=== PATIENT | female | born 1990 | race Caucasian/White ===

== ENCOUNTER 2018-07-15 14:38 | Emergency (ER) | payer OTHER ==
[~2018-07-15] VITALS: Ht 154.9 cm; Wt 62.6 kg
--- NOTE | 2018-07-15 14:47 | NUR ---
PT AMBULATES TO BED 5
[2018-07-15 14:50] VITALS: BP 136/79
--- NOTE | 2018-07-15 15:00 | NUR ---
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
[2018-07-15 15:55] VITALS: BP 115/70
--- NOTE | 2018-07-15 15:55 | NUR ---
AAO PT D/C INSTRUCTIONS GIVEN BY DR JENKINS; INSTRUCTED TO FOLLOWUP WITH PRIMARY MD; AMBULATE WITH STEADY GAIT; VSS, ALL QUESTIONS ANSWERED BY DR JENKINS.
[2018-07-16 08:11] LABS: HEPATITIS B SURFACE ANTIGEN Negative (Negative)
== END 2018-07-15 15:55 | disposition home or self-care (01) ==
LOC: MED 14:38
DX: S61.230A Puncture wound without foreign body of right index finger without damage to nail, initial encounter (principal); G43.909 Migraine, unspecified, not intractable, without status migrainosus; Y99.8 Other external cause status; W46.0XXA Contact with hypodermic needle, initial encounter; Y93.89 Activity, other specified; Y92.89 Other specified places as the place of occurrence of the external cause
CPT/HCPCS: 36415; 86702; 86803; 87340; 90471; 90715; 99284

== ENCOUNTER 2018-08-26 08:05 | Emergency (ER) | payer OTHER ==
[~2018-08-26] VITALS: Ht 154.9 cm; Wt 64.0 kg
[2018-08-26 08:13] VITALS: BP 125/70
--- NOTE | 2018-08-26 08:21 | NUR ---
PT AMBULATES TO BED 4
--- NOTE | 2018-08-26 08:36 | NUR ---
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
--- NOTE | 2018-08-26 08:54 | NUR ---
Patient being evaluated by physician at bedside.
--- NOTE | 2018-08-26 09:34 | NUR ---
Denny heath in ED - 08/26/18 at 0944 by [email or web address] PT ON STRETCHER, MOTHER AT BEDSIDE, NAD NOTED.
[2018-08-26 09:43] VITALS: BP 123/75
--- NOTE | 2018-08-26 09:44 | NUR ---
Patient discharged with v/s stable. Written and verbal after care instructions given and explained. Patient verbalized understanding. Ambulatory with steady gait. All questions addressed prior to discharge. Advised to follow up with PMD.
[2018-08-27 09:17] LABS: HEPATITIS B SURFACE ANTIGEN Negative (Negative)
== END 2018-08-26 09:44 | disposition home or self-care (01) ==
LOC: MED 08:05
DX: Z77.21 Contact with and (suspected) exposure to potentially hazardous body fluids (principal); G43.909 Migraine, unspecified, not intractable, without status migrainosus
CPT/HCPCS: 36415; 86592; 86702; 86803; 87340; 99284

== ENCOUNTER 2019-01-17 10:43 | Emergency (ER) | payer OTHER ==
[~2019-01-17] VITALS: Ht 154.9 cm; Wt 61.2 kg
[2019-01-17 10:56] VITALS: BP 115/77
--- NOTE | 2019-01-17 11:10 | NUR ---
PT BIB SELF FOR UTI SYMPTOMS X1 MONTH. PT REPORTS BEING TREATED WITH 3 DIFFERENT ABX FROM PCP, AND UTI IS GETTING WORSE. PT DENIES UTI SYMPTOMS AT THIS TIME BUT STATES THAT SHE HAD SUPRAPUBIC BURNING 2 DAYS AGO. INTERMITENT SHARP LUQ ABD PAIN AT 5/10. PT ALSO COMPLAINS OF CONSTIPATION AND HEMORROIDS. PT REPORTS BRIGHT RED BLOOD WHEN WHIPING. PT DENIES N/V/D, OR FEVER. VSS. ER MD TO SEE PT MEDHX:NONE RX:
--- NOTE | 2019-01-17 11:11 | NUR ---
Patient ambulated to bed 2. RN evaluating patient at bedside.
--- NOTE | 2019-01-17 11:50 | NUR ---
Dr. Valle evaluating patient at bedside.
[2019-01-17 12:09] VITALS: BP 124/72
--- NOTE | 2019-01-17 12:09 | NUR ---
Patient discharged with v/s stable. Written and verbal after care instructions given and explained. Patient alert, oriented and verbalized understanding of instructions. Ambulatory with steady gait. All questions addressed prior to discharge. ID band removed. Patient advised to follow up with PMD. Rx of ANUSOL AND COLACE given. Patient educated on indication of medication including possible reaction and side effects. Opportunity to ask questions provided and answered.
[2019-01-19 08:27] LABS: CHLAMYDIA TRACHOMATIS AMP DNA Negative (Negative)
== END 2019-01-17 12:09 | disposition home or self-care (01) ==
LOC: MED 10:43
DX: K64.4 Residual hemorrhoidal skin tags (principal); N39.0 Urinary tract infection, site not specified; G43.909 Migraine, unspecified, not intractable, without status migrainosus
CPT/HCPCS: 36415; 81002; 81025; 87491; 99282

== ENCOUNTER 2019-02-08 18:07 | Emergency (ER) | payer OTHER ==
[~2019-02-08] VITALS: Ht 152.4 cm; Wt 67.6 kg
[2019-02-08 18:13] VITALS: BP 134/76
--- NOTE | 2019-02-08 18:32 | NUR ---
PT AMB TO ER BED 9
--- NOTE | 2019-02-08 18:32 | NUR ---
PATIENT PRESENTS TO ED WITH C/O NAUSEA AND HEADACHE. PAIN 9/10 PT SKIN IS PINK/WARM/DRY; AAOX4 WITH EVEN AND STEADY GAIT; LUNGS CLEAR BL; HR EVEN AND REGULAR; PATIENT STATES PAIN OF 9/10 AT THIS TIME; PATIENT POSITIONED FOR COMFORT; HOB ELEVATED; BEDRAILS UP X2; BED DOWN. PENDING ER MD EVALUATION
--- NOTE | 2019-02-08 18:36 | NUR ---
ER MD DR FLOWER AT BEDSIDE
[2019-02-08] MEDS ORDERED: MORPHINE SULFATE 4 MG/ML SYR IM ONE (18:40)
[2019-02-08] MEDS ORDERED: METOCLOPRAMIDE 10 MG TAB PO ONE (18:40)
[2019-02-08] MEDS ORDERED: KETOROLAC 60 MG/2 ML VIAL IM ONE (18:40)
[2019-02-08 19:20] VITALS: BP 134/76
--- NOTE | 2019-02-08 19:20 | NUR ---
Patient discharged with v/s stable. Written and verbal after care instructions given and explained. Patient alert, oriented and verbalized understanding of instructions. Ambulatory with steady gait. All questions addressed prior to discharge. ID band removed. Patient advised to follow up with PMD. Rx of Fioricet given. Patient educated on indication of medication including possible reaction and side effects. Opportunity to ask questions provided and answered.
== END 2019-02-08 19:20 | disposition home or self-care (01) ==
LOC: MED 18:07
DX: G43.909 Migraine, unspecified, not intractable, without status migrainosus (principal)
CPT/HCPCS: 81002; 81025; 96372; 99283; J1885; J2270; J8597

== ENCOUNTER 2019-10-29 07:41 | Emergency (ER) | payer OTHER ==
[~2019-10-29] VITALS: Ht 154.9 cm; Wt 63.5 kg
--- NOTE | 2019-10-29 07:48 | NUR ---
PATIENT AMBULATED STEDY GAIT TO BED 9.
[2019-10-29 07:54] VITALS: BP 118/81
--- NOTE | 2019-10-29 07:59 | NUR ---
28 Y/O F C/C DIARRHEA SINCE TUESDAY. PER PT BELIEVES IT COULD BE STREET FOOD WHICH SHE HAD TUESDAY. LAST BM THIS MORNING 0600 HOURS; BOWEL SOUNDS NORMOACTIVE. PT NKA. NO HX. SX LIPO. RX VITAMINS. NO N/V. SIDE RAIL X1.
[2019-10-29 09:05] LABS: ANION GAP 8.3 (8-16); CARBON DIOXIDE 27.1 mmol/L (21-32); CREATININE 0.6 mg/dL (0.6-1.3); POTASSIUM 4.4 mmol/L (3.5-5.1)
[2019-10-29 09:11] LABS: ALBUMIN 3.6 g/dL (3.4-5.0); BASOPHILS % (AUTO) 0.3 % (0.0-2.0); EOSINOPHILS # (AUTO) 0.1 K/uL (0-0.4); EOSINOPHILS % (AUTO) 1.2 % (0.0-4.0); HEMOGLOBIN 13.3 g/dL (12.0-16.0); LYMPHOCYTES # (AUTO) 0.6 K/uL (2.5-16.5); LYMPHOCYTES % (AUTO) 9.4 % (20.5-51.1); MEAN CORPUSCULAR HEMOGLOBIN 29 pg (27-31); MEAN CORPUSCULAR HGB CONC 32 g/dL (33-37); MEAN CORPUSCULAR VOLUME 89.3 fL (80-94); MONOCYTES # (AUTO) 0.3 K/uL (0.8-1.0); MONOCYTES % (AUTO) 4.4 % (1.7-9.3); NEUTROPHILS # (AUTO) 5.4 K/uL (1.8-7.7); NEUTROPHILS % (AUTO) 84.7 % (42.2-75.2); PLATELET COUNT (AUTO) 269 K/uL (140-450); RED BLOOD CELL COUNT(AUTO) 4.59 MIL/uL (4.20-5.40); RED CELL DISTRIBUTION WIDTH 13.9 % (11.6-13.7); TOTAL BILIRUBIN 0.6 mg/dL (0.0-1.0); WHITE BLOOD COUNT (AUTO) 6.4 K/uL (4.8-10.8)
[2019-10-29 10:08] LABS: APPEARANCE,URINE CLOUDY (CLEAR); BILIRUBIN,URINE NEGATIVE (NEGATIVE); BLOOD, URINE NEGATIVE (NEGATIVE); COLOR,URINE YELLOW (YELLOW); LEUKOCYTE ESTERASE ,URINE TRACE (NEGATIVE); NITRITE, URINE NEGATIVE (NEGATIVE); UGLUCOSE NEGATIVE (NEGATIVE)
[2019-10-29 10:17] LABS: RBC,URINE 0-5 /HPF (0-5); URINE AMORPHOUS URATE 4+ /HPF (None Seen); WBC,URINE 0-5 /HPF (0-5)
[2019-10-29 10:45] VITALS: BP 118/81
--- NOTE | 2019-10-29 10:46 | NUR ---
Patient discharged with v/s stable. Written and verbal after care instructions given and explained. Patient alert, oriented and verbalized understanding of instructions. Ambulatory with steady gait. All questions addressed prior to discharge. ID band removed. Patient advised to follow up with PMD. Rx of cipro/zofran given. Patient educated on indication of medication including possible reaction and side effects. Opportunity to ask questions provided and answered.
== END 2019-10-29 10:46 | disposition home or self-care (01) ==
LOC: MED 07:41
DX: R19.7 Diarrhea, unspecified (principal)
CPT/HCPCS: 36415; 80053; 81001; 81025; 85025; 87086; 99283

== ENCOUNTER 2019-11-14 10:30 | Emergency (ER) | payer OTHER ==
[~2019-11-14] VITALS: Ht 154.9 cm; Wt 63.5 kg
[2019-11-14 10:59] VITALS: BP 121/74
--- NOTE | 2019-11-14 11:05 | NUR ---
WAIT AT LOBBY.
--- NOTE | 2019-11-14 13:16 | NUR ---
N/A IN ER LOBBY
== END 2019-11-14 13:16 | disposition left against medical advice (07) ==
LOC: MED 10:30
DX: M79.604 Pain in right leg (principal); Z53.21 Procedure and treatment not carried out due to patient leaving prior to being seen by health care provider